=== PATIENT | male | born 1945 | race Caucasian/White ===

== ENCOUNTER → 2021-01-13 | Outpatient (REF) ==
[2021-01-13 12:18] LABS: ALBUMIN 2.9 g/dL (3.4-4.8)
[2021-01-13 12:19] LABS: POTASSIUM 5.1 mmol/L (3.5-5.1)
[2021-01-13 12:20] LABS: CALCIUM 8.3 mg/dL (8.3-10.5)
[2021-01-13 12:23] LABS: TOTAL BILIRUBIN 0.3 mg/dL (0.2-1.2)
== END ==
LOC: LAB 10:46
DX: Z01.89 Encounter for other specified special examinations (principal)